=== PATIENT | female | born 1955 | race Caucasian/White ===

== ENCOUNTER 2020-05-13 21:06 | Emergency (ER) | payer BC ==
--- NOTE | 2020-05-13 22:21 | EDM.PDOC ---
ED HPI GENERAL MEDICAL PROBLEM - General Stated Complaint: FALL-ARM PAIN Time Seen by Provider: 05/13/20 22:20 Source of Information: Reports: Patient History Limitations: Reports: No Limitations - History of Present Illness INITIAL COMMENTS - FREE TEXT/NARRATIVE: 65-year-old female who was taking a walk at about 7:30 to 8 PM tonight and she tripped and stumbled falling on "all fours". She states that she felt a pop in her left shoulder and she has had pain in her left shoulder since that time. The pain begins in the anterior shoulder and radiates to the posterior shoulder and posterior left upper back. She did not hit her head. There was no loss of consciousness. No neck or midline back pain. She reports that initially the pain was mild but it did get progressively worse with time and with any kind of movement she reports the pain as a 10/10. It is sharp and throbbing. The pain is worse with palpation and with movement. It is more so painful with movement than with palpation. She did not have any weakness or dizziness prior to the fall she's not had any since then. There was no cough or cold type symptoms. She has had no chest pain. There are no other associated signs or symptoms. There are no other modifying factors. 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: Other (see below) (Nothing) - Related Data Allergies Allergy/AdvReac Type Severity Reaction Status Date / Time Penicillins Allergy Rash Verified 04/15/15 07:36 Home Meds: Home Meds Albuterol [Ventolin HFA] 1 puff INH ASDIRECTED PRN 01/13/15 [History] Fexofenadine/Pseudoephedrine [Rebecca-D 12 Hour] 1 tab PO DAILY 01/13/15 [History] Fluticasone Propionate [Flonase] 1 spr SEAMUS DAILY 04/14/15 [History] atorvaSTATin [Lipitor] 10 mg PO DAILY 04/14/15 [History] Past Medical History Cardiovascular History: Reports: CAD, High Cholesterol, Hypertension Oncologic (Cancer) History: Reports: Ovarian - Past Surgical History GI Surgical History: Reports: Cholecystectomy Female Surgical History: Reports: Hysterectomy Social & Family History - Tobacco Use Smoking Status *Q: Never Smoker Second Hand Smoke Exposure: No - Alcohol Use Alcohol Use History: No - Living Situation & Occupation 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.) Review of Systems - Review of Systems Review Of Systems: See Below Constitutional: Reports: No Symptoms Eyes: Reports: No Symptoms Ears: Reports: No Symptoms Nose: Reports: No Symptoms Mouth/Throat: Reports: No Symptoms Respiratory: Reports: No Symptoms Cardiovascular: Reports: No Symptoms GI/Abdominal: Reports: No Symptoms Musculoskeletal: Reports: Shoulder Pain, Back Pain Skin: Reports: No Symptoms Neurological: Reports: No Symptoms Psychiatric: Reports: No Symptoms ED EXAM, GENERAL - Physical Exam Exam: See Below Exam Limited By: No Limitations General Appearance: Alert, WD/WN, Moderate Distress (And some pain.) Eye Exam: Bilateral Eye: EOMI, Normal Inspection, PERRL Ears: Normal External Exam, Hearing Grossly Normal Ear Exam: Bilateral Ear: Auricle Normal Nose: Normal Inspection, Normal Mucosa, No Blood Throat/Mouth: Normal Inspection, Normal Lips, Normal Oropharynx, Normal Voice, No Airway Compromise Head: Atraumatic, Normocephalic Neck: Normal Inspection, Supple, Non-Tender, Full Range of Motion Respiratory/Chest: No Respiratory Distress, Lungs Clear, Normal Breath Sounds, No Accessory Muscle Use, Chest Non-Tender Cardiovascular: Normal Peripheral Pulses Peripheral Pulses: 2+: Radial (L), Radial (R), Dorsalis Pedis (L), Dorsalis Pedis (R) GI/Abdominal: Normal Bowel Sounds, Soft, Non-Tender, No Mass Back Exam: Normal Inspection, Full Range of Motion. No: Muscle Spasm, Paraspinal Tenderness, Vertebral Tenderness Extremities: Normal Capillary Refill, Limited Range of Motion (With tenderness over the left shoulder. There is some tenderness over the glenohumeral joint but it is mostly along the anterior and posterior left upper back and chest) Neurological: Alert, Oriented, CN II-XII Intact, Normal Cognition, No Motor/Sensory Deficits Skin Exam: Warm, Dry, Intact, Normal Color, No Rash Course - Orders/Labs/Meds Orders: Active Orders 24 hr Category Date Time Status Communication Order [RC] ONETIME Care 07/23/20 22:56 Active - Radiology Interpretation Free Text/Narrative:: Left shoulder x-ray shows no evidence of dislocation and no definite evidence of fracture. - Re-Assessments/Exams Free Text/Narrative Re-Assessment/Exam: 05/13/20 22:50: The x-ray of her left shoulder showed no definite fracture and there was no dislocation. There could be a fracture that I am not seeing. I feel that it is likely that this is an injury to the rotator cuff. I will place the patient in a sling and have her apply ice packs intermittently to the shoulder. She should begin range of motion with the shoulder as tolerated and one or 2 days. She should follow-up with her primary provider as she a need further outpatient evaluation including an MRI of her shoulder. She may also need orthopedic referral. She may take ibuprofen and Tylenol as needed for pain. I discussed all of this with the patient and she is comfortable with the plan for discharge. Precautions and reasons for return to the emergency department were discussed with the patient while she was in the emergency department and were detailed in her discharge instructions. 05/14/20 10:55: I received a call from Dr. Andino, radiologist, and he was reporting that there was a fracture that involved the inferior lip of the glenoid. I reviewed the x-ray and I would agree with that. Therefore, I called the patient at this time and advised her to follow-up with an cam specialist. She was advised to follow-up with her primary provider and she should call them to have them arrange for her to see an cam specialist. In the meantime, she should continue to keep her arm in the sling and she should do gentle range of motion only with the left shoulder until cleared for more by the orthopedic physician. Departure - Departure Time of Disposition: 23:05 Disposition: Home, Self-Care 01 Condition: Good Clinical Impression: Fall from other slipping, tripping, or stumbling, Internal derangement of left shoulder Injury of left shoulder Qualifiers: Encounter type: initial encounter Qualified Code(s): S49.92XA - Unspecified injury of left shoulder and upper arm, initial encounter - Discharge Information Instructions: Fall Prevention in the Home, Adult, [id number] Referrals: Abdi Gambino MD [Primary Care Provider] - Additional Instructions: The x-ray of your left shoulder showed no definite fracture and there was no dislocation. There could be a fracture that I am not seeing and the radiologist will review the film and if there is a fracture we will call you. Use the sling for comfort and support. In one day you should begin doing gentle range of motion with your left shoulder. You may take ibuprofen and Tylenol as needed for pain. Apply ice packs intermittently to your left shoulder for the next 2-3 days. You should plan on following up with your primary provider next week as you may need further outpatient evaluation including an MRI and possibly even orthopedic referral. Back to the emergency department for marked increase in pain, left arm weakness or any other concerning sign or symptom. - My Orders Last 24 Hours: My Active Orders 05/13/20 22:56 Communication Order [RC] ONETIME - Assessment/Plan Last 24 Hours: My Active Orders 05/13/20 22:56 Communication Order [RC] ONETIME
--- NOTE | 2020-05-14 10:55 | CR ---
INDICATION: Fell with pain in left shoulder. LEFT SHOULDER: Four views of the left shoulder were obtained 05/13/20 and compared with a chest x-ray including the left shoulder dated 01/13/15. There is an oblique fracture through the lower portion of the glenoid fossa extending from the mid portion into the inferior portion with separate of approximately 3 to 4 mm of the fracture fragment from the main portion of the glenoid fossa. There are mild degenerative changes at the AC and glenohumeral joints. Joint spaces appear to be fairly well maintained. Adjacent ribs and lung appear to be intact. IMPRESSION: Glenoid fossa large chip fracture fragment including approximately a third to a quarter of the joint surface with distraction noted of approximately 3 to 4 mm maximally. Report was called to Dr. Vasquez at 1021 hours 05/14/20. [facility]
[2020-05-24 00:40] VITALS: BP 146/89; PULSE 77
== END 2020-05-13 23:40 | disposition home or self-care (01) ==
LOC: FB.ED 21:06
DX: M24.9 Joint derangement, unspecified (principal); I10 Essential (primary) hypertension; E78.00 Pure hypercholesterolemia, unspecified; I25.10 Atherosclerotic heart disease of native coronary artery without angina pectoris; Z88.0 Allergy status to penicillin; Z90.710 Acquired absence of both cervix and uterus; Z90.49 Acquired absence of other specified parts of digestive tract; W01.0XXA Fall on same level from slipping, tripping and stumbling without subsequent striking against object, initial encounter
CPT/HCPCS: 73030-LT; 99283

== ENCOUNTER → 2023-06-14 | Day surgery (SDC) | payer BC ==
[~2023-06-14] MED LIST: Lactated Ringers 1,000 ML IV SCH; Lidocaine 2% 5 ML SDV IV ONE; Propofol 200 MG/20 ML SDV IV ONE; Simethicone Drops 40 MG/0.6 ML 30 ML Bottle ONE; Sodium Chloride 0.9% 10 ML Syringe FLUSH PRN
[2023-06-14 09:58] VITALS: BP 132/63; PULSE 58
== END | disposition home or self-care (01) ==
LOC: FB.SDS 07:01
PROVIDERS: ATTEND Surgery
DX: K57.30 Diverticulosis of large intestine without perforation or abscess without bleeding (principal); K62.89 Other specified diseases of anus and rectum; J45.909 Unspecified asthma, uncomplicated; K21.9 Gastro-esophageal reflux disease without esophagitis; E78.5 Hyperlipidemia, unspecified; E66.9 Obesity, unspecified; E66.01 Morbid (severe) obesity due to excess calories; Z86.010 Personal history of colon polyps; Z80.0 Family history of malignant neoplasm of digestive organs; Z85.43 Personal history of malignant neoplasm of ovary; Z79.899 Other long term (current) drug therapy; Z88.0 Allergy status to penicillin; Z88.8 Allergy status to other drugs, medicaments and biological substances; Z90.49 Acquired absence of other specified parts of digestive tract; Z90.710 Acquired absence of both cervix and uterus; Z68.41 Body mass index [BMI] 40.0-44.9, adult; Z87.891 Personal history of nicotine dependence
CPT/HCPCS: 00811; A9270-GY; J2704; J7120